=== PATIENT | male | born 1950 | race Caucasian/White ===

== ENCOUNTER 2018-04-28 09:00 | Emergency (ER) | payer MEDICARE, BC ==
--- NOTE | 2018-04-28 20:37 | RAD ---
CHEST TWO VIEWS: 04/28/18 Comparison is made with a 05/07/10 study from [facility]. The heart is normal in size and the lungs are clear. There is no current sign of pneumonia. No pleura l effusions are seen. The mediastinum was unremarkable. IMPRESSION: No acute thoracic finding. POS: HOME
== END 2018-04-28 09:59 | disposition home or self-care (01) ==
LOC: BURERS 09:00
DX: J20.9 Acute bronchitis, unspecified (principal); I10 Essential (primary) hypertension; Z87.891 Personal history of nicotine dependence
CPT/HCPCS: 71046

== ENCOUNTER 2018-10-07 09:43 | Emergency (ER) | payer MEDICARE, BC ==
[2018-10-07] MEDS ORDERED: Acetaminophen 500 MG TAB ONE (09:58)
[2018-10-07] MEDS ORDERED: Ibuprofen 200 MG TAB ONE (09:58)
--- NOTE | 2018-10-07 10:28 | RAD ---
3 VIEWS LEFT SHOULDER: Date: 10/07/18 COMPARISON: 12/24/13. HISTORY: Left shoulder pain. Patient thinks he dislocated it 3 weeks ago. Reinjured today. FINDINGS: 3 views of the left shoulder show no evidence of acute fracture or dislocation. There is mild acromio clavicular degenerative changes. No soft tissue swelling is seen. The visualized left thorax is unrem arkable. IMPRESSION: Mild acromioclavicular degenerative change without acute osseous abnormality. POS: [facility]
== END 2018-10-07 10:30 | disposition home or self-care (01) ==
LOC: BURERS 09:43
DX: M25.512 Pain in left shoulder (principal); Z87.891 Personal history of nicotine dependence